=== PATIENT | male | born 1990 | race Caucasian/White ===

== ENCOUNTER 2021-08-24 08:05 | Emergency (ER) | payer SELFPAY ==
[~2021-08-24] VITALS: Ht 182.9 cm; Wt 68.2 kg
[2021-08-24 08:39] LABS: BASO # 0.1 K/mm3 (0.0-0.2); BASO % 1.5 % (0.0-2.0); EOS # 0.2 K/mm3 (0.0-0.7); EOS % 2.5 % (0-4.0); GRAN % 49.7 % (42.2-75.2); HEMATOCRIT 42.8 % (42.0-52.0); HEMOGLOBIN 14.6 g/dl (13.5-18.0); LYMPH # 2.2 K/mm3 (1.2-3.4); LYMPH % 35.5 % (20.0-51.0); MEAN CELL VOLUME 92 fl (80.0-100.0); MEAN CORPUSCULAR HEMOGLOBIN 32 pg (27.0-31.0); MEAN CORPUSCULAR HGB CONC 34 g/dl (33.0-37.0); MEAN PLATELET VOLUME 9.2 fl (7.4-10.4); MONO # 0.6 K/mm3 (0.1-0.6); MONO % 10.5 % (1.7-9.3); PLATELET COUNT 254 K/mm3 (130-400); RED BLOOD COUNT 4.63 M/mm3 (4.20-5.60); REDCELL DISTRIBUTION WIDTH-CV 12.4 % (11.5-14.5)
[2021-08-24 08:55] LABS: ALANINE AMINOTRANSFERASE 30 U/L (0-55); ALBUMIN 3.9 gm/dL (3.5-5.0); ALKALINE PHOSPHATASE 50 U/L (40-150); ANION GAP 11 mmol/L (7-16); AST,SGOT 20 U/L (5-34); BILIRUBIN,TOTAL 1.4 mg/dL (0.2-1.2); BLOOD UREA NITROGEN 9 mg/dL (9-21); CALCIUM 8.7 mg/dL (8.4-10.2); CARBON DIOXIDE 23 mmol/L (22-29); CHLORIDE 106 mmol/L (98-107); CREATININE, serum 0.85 mg/dL (0.72-1.25); GLUCOSE 99 mg/dL (70-99); POTASSIUM 4.2 mmol/L (3.5-4.5); SODIUM 140 mmol/L (136-145); TOTAL PROTEIN 6.9 gm/dL (6.2-8.1)
[2021-08-24 09:02] LABS: TROPONIN-I < 0.010 ng/mL (0.00-0.033)
[2021-08-24] MEDS ORDERED: AMOXICILLIN 8751 TAB PO (10:19)
[2021-08-24 10:58] VITALS: BP 126/88; PULSE 66
== END 2021-08-24 10:59 | disposition home or self-care (01) ==
LOC: COL.ER 08:05
PROVIDERS: Personal Emergency Response Attendant
DX: J18.9 Pneumonia, unspecified organism (principal); Z20.822 Contact with and (suspected) exposure to COVID-19
CPT/HCPCS: J0696; J2270; J2405; Q9967